=== PATIENT | male | born 1935 | race Caucasian/White ===

== ENCOUNTER → 2017-11-18 | Outpatient (CLI) | payer OTHER ==
[~2017-11-18] MED LIST: ALDACTONE25 MG PO; ASPIR 8181 MG PO; ATORVASTATIN CA40 MG PO; CLOPIDOGREL75 MG PO; COREG3.125 MG PO; METFORMIN HCL500 MG PO; NITROGLYCERIN0.4 MG SUBLING; PRINIVIL5 MG PO; ZOCOR20 MG PO
== END ==
LOC: M.RAD 09:45
DX: M41.86 Other forms of scoliosis, lumbar region (principal); M51.36 Other intervertebral disc degeneration, lumbar region; I70.0 Atherosclerosis of aorta

== ENCOUNTER → 2018-01-24 | Outpatient (CLI) | payer OTHER ==
--- NOTE | 2018-01-24 18:33 | 2DMMODE ---
[place] [address] 2 D/M-MODE ECHOCARDIOGRAM Name: HELENE PULIDO Room: [facility]#: [id number] Admission: 01/24/18 Attend Phys: Edson Ahn MD Discharge: Date of : 33 Date of Service: 01/24/18 1833 Report #: [id number] THIS REPORT FOR: //name// APPROVED REPORT Study performed: 01/24/2018 08:08:03 EXAM: Comprehensive 2D, Doppler, and color-flow Echocardiogram Patient Location: Out-Patient Status: routine BSA: 1.91 HR: 58 bpm BP: 120/75 mmHg Other Information Study Quality: Good Indications CAD Cardiomyopathy 2D Dimensions LVEF(%): 35.98 (>50%) IVSd: 11.71 (7-11mm) LVOT Diam: 20.80 (18-24mm) LVDd: 47.13 mm PWd: 10.54 (7-11mm) Ascending Ao: 31.69 (22-36mm) LVDs: 39.02 (25-40mm) Aortic Root: 31.32 mm Estrada's LVEF: 35.98 % Volumes Left Atrial Volume (Systole) LA ESV Index: 16.80 mL/m2 Aortic Valve AoV Peak Christ.: 1.39 m/s AO Peak Gr.: 7.77 mmHg LVOT Max P.68 mmHg AO Mean Gr.: 4.31 mmHg LVOT Mean P.83 mmHg LVOT Max V: 0.65 m/s AO V2 VTI: 25.56 cm LVOT Mean V: 0.41 m/s ROBIN (VTI): 1.80 cm2 LVOT V1 VTI: 13.53 cm AI [place]: 0.98 m/s2 AI PHT: 881.69 [place] [address] 2 D/M-MODE ECHOCARDIOGRAM Name: HELENE PLUIDO Room: [facility]#: [id number] Admission: 01/24/18 Attend Phys: Edson Ahn MD Discharge: Date of : 33 Date of Service: 01/24/18 1833 Report #: [id number] Mitral Valve E/A Ratio: 0.49 MV Decel. Time: 360.52 ms MV E Max Christ.: 0.37 m/s MV PHT: 104.55 ms MVA (PHT): 2.10 cm2 TDI E/Lateral E': 5.29 E/Medial E': 7.40 Medial E' Christ.: 0.05 m/s Lateral E' Christ.: 0.07 m/s Pulmonary Valve PV Peak Christ.: 0.93 m/s PV Peak Gr.: 3.47 mmHg Tricuspid Valve TR Peak Gr.: 15.44 mmHg RVSP: 20.44 mmHg Left Ventricle Left ventricle is borderline dilated. There is abnormal segmental wall motion with inferobasilar dyskinesis There is normal left ventricular wall thickness. Left ventricular systolic function is moderately decreased. LVEF is 35%. Grade I - abnormal relaxation pattern. Right Ventricle The right ventricle is normal size. The right ventricular systolic function is normal. Atria The left atrium size is normal. The right atrium size is normal. Aortic Valve Mild aortic valve sclerosis. Mild aortic regurgitation. There is no aortic valvular stenosis. Mitral Valve The mitral valve is normal in structure. Mild mitral regurgitation. No evidence of mitral valve stenosis. Tricuspid Valve The tricuspid valve is normal in structure. Trace tricuspid regurgitation[place] [address] 2 D/M-MODE ECHOCARDIOGRAM Name: HELENE PULIDO Room: [facility]#: [id number] Admission: 01/24/18 Attend Phys: Edson Ahn MD Discharge: Date of : 33 Date of Service: 01/24/18 1833 Report #: [id number] The pulmonary valve is normal in structure. Mild pulmonic regurgitation. Great Vessels The aortic root is normal in size. IVC is normal in size and collapses with >50% inspiration Pericardium There is no pericardial effusion. <Conclusion> Left ventricle is borderline dilated. There is normal left ventricular wall thickness. Left ventricular systolic function is moderately decreased. LVEF is 35%. Grade I - abnormal relaxation pattern. The right ventricle is normal size. The left atrium size is normal. Mild aortic valve sclerosis. Mild aortic regurgitation. There is no aortic valvular stenosis. The mitral valve is normal in structure. Mild mitral regurgitation. The tricuspid valve is normal in structure. IVC is normal in size and collapses with >50% inspiration There is no pericardial effusion. There is abnormal segmental wall motion with inferobasilar dyskinesis <ELECTRONICALLY SIGNED> By: Quinn Vergara MD, FACC 01/24/181832 32 32 Quinn Vergara MD, FACC /INF
== END ==
LOC: M.CRD 07:37
DX: I08.0 Rheumatic disorders of both mitral and aortic valves (principal); I25.10 Atherosclerotic heart disease of native coronary artery without angina pectoris; I25.5 Ischemic cardiomyopathy

== ENCOUNTER → 2018-08-15 | Outpatient (CLI) | payer OTHER ==
[2018-08-15 12:22] LABS: CALCIUM 9.5 mg/dL (8.5-10.1); CREATININE 1.8 mg/dL (0.6-1.3); POTASSIUM 4.7 mmol/L (3.5-5.1)
== END ==
LOC: M.LAB 00:19
PROVIDERS: Anesthesiology
DX: I12.9 Hypertensive chronic kidney disease with stage 1 through stage 4 chronic kidney disease, or unspecified chronic kidney disease (principal); E11.22 Type 2 diabetes mellitus with diabetic chronic kidney disease; E78.5 Hyperlipidemia, unspecified; N18.9 Chronic kidney disease, unspecified

== ENCOUNTER 2018-08-26 07:38 | Emergency (ER) | payer OTHER ==
[~2018-08-26] VITALS: Ht 177.8 cm; Wt 72.6 kg
[2018-08-26] MEDS ORDERED: PEPCID20 MG PO (07:53)
[2018-08-26] MEDS ORDERED: PRESERVISION A1 EAC2 PO (07:56)
[2018-08-26] MEDS ORDERED: CENTRUM ADULTS1 EACH PO (07:57)
[2018-08-26] MEDS ORDERED: SUPER B COMPLE1 EAC2 PO (07:57)
[2018-08-26 08:23] LABS: ABSOLUTE BASOPHILS 0.1 thou/uL (0.0-0.2); ABSOLUTE EOSINOPHILS 0.5 thou/uL (0.0-0.7); ABSOLUTE LYMPHOCYTES 1.3 thou/uL (0.8-5.3); ABSOLUTE MONOCYTES 0.8 thou/uL (0.0-1.2); ABSOLUTE NEUTROPHILS 5.3 thou/uL (1.6-8.1); EOSINOPHILS 5.9 %; HEMATOCRIT 40.8 % (42.0-52.0); MCH 34.3 pg (26.0-34.0); MCHC 34.3 g/dL (28.0-37.0); MONOCYTES 9.5 %; MPV 8.7 fl. (7.2-11.1); NUCLEATED RBCS 0 /100WBC; PLATELET COUNT* 184 thou/uL (150-400); POLYS 66.6 %; RBC 4.08 mil/uL (4.50-6.00); RDW-CV 13.2 % (10.5-14.5); WBC 7.9 thou/uL (4.0-11.0)
[2018-08-26 08:29] LABS: CALCIUM 9.4 mg/dL (8.5-10.1); CREATININE 1.9 mg/dL (0.6-1.3); POTASSIUM 4.8 mmol/L (3.5-5.1)
[2018-08-26 08:32] LABS: URINE BILIRUBIN NEGATIVE (Negative); URINE BLOOD NEGATIVE (Negative); URINE CLARITY CLEAR; URINE COLOR YELLOW; URINE GLUCOSE-RANDOM NEGATIVE (Negative); URINE KETONES NEGATIVE (Negative); URINE LEUKOCYTES-REFLEX NEGATIVE (Negative); URINE NITRITE-REFLEX NEGATIVE (Negative); URINE PROTEIN NEGATIVE (Negative); URINE SPECIFIC GRAVITY 1.015 (1.005-1.030); URINE UROBILINOGEN 0.2 E.U./dl (0.2-1.0)
[2018-08-26 08:33] LABS: ALBUMIN 3.6 g/dL (3.4-5.0); TOTAL BILIRUBIN 0.6 mg/dL (<0.1-1.0); TOTAL PROTEIN 7.5 g/dL (6.4-8.2)
[2018-08-26] MEDS ORDERED: NORCO 5-325 TA1 EACH PO (10:09)
[2018-08-26] MEDS ORDERED: COLACE100 MG PO (10:09)
[2018-08-26 10:23] VITALS: BP 145/43
== END 2018-08-26 10:24 | disposition home or self-care (01) ==
LOC: M.ERS 07:38
PROVIDERS: Personal Emergency Response Attendant
DX: S30.0XXA Contusion of lower back and pelvis, initial encounter (principal); K59.00 Constipation, unspecified; I10 Essential (primary) hypertension; E78.5 Hyperlipidemia, unspecified; Z90.49 Acquired absence of other specified parts of digestive tract; Z95.5 Presence of coronary angioplasty implant and graft; Z90.89 Acquired absence of other organs; W00.0XXA Fall on same level due to ice and snow, initial encounter; Y92.89 Other specified places as the place of occurrence of the external cause; Y93.89 Activity, other specified; Y99.8 Other external cause status

== ENCOUNTER 2018-12-12 18:01 | Emergency (ER) | payer OTHER ==
[~2018-12-12] VITALS: Ht 177.8 cm; Wt 73.9 kg
[~2018-12-12 18:01] MED LIST changes: -ALDACTONE25 MG PO; +CENTRUM ADULTS1 EACH PO; +COLACE100 MG PO; +NORCO 5-325 TA1 EACH PO; +PEPCID20 MG PO; +PRESERVISION A1 EAC2 PO; +SPIRONOLACTONE25 M1 PO; +SUPER B COMPLE1 EAC2 PO
[2018-12-12 18:40] LABS: ABSOLUTE BASOPHILS 0.1 thou/uL (0.0-0.2); ABSOLUTE EOSINOPHILS 0.6 thou/uL (0.0-0.7); ABSOLUTE LYMPHOCYTES 2.3 thou/uL (0.8-5.3); ABSOLUTE MONOCYTES 0.7 thou/uL (0.0-1.2); ABSOLUTE NEUTROPHILS 3.6 thou/uL (1.6-8.1); BASOPHILS 1.3 %; EOSINOPHILS 7.9 %; HEMATOCRIT 40.6 % (42.0-52.0); HEMOGLOBIN 13.8 gm/dL (14.0-18.0); LYMPHOCYTES 31.3 %; MCH 33.5 pg (26.0-34.0); MCHC 34.1 g/dL (28.0-37.0); MCV 98.5 fL (80.0-100.0); MONOCYTES 9.8 %; MPV 8.7 fl. (7.2-11.1); NUCLEATED RBCS 0 /100WBC; PLATELET COUNT* 215 thou/uL (150-400); POLYS 49.7 %; RBC 4.12 mil/uL (4.50-6.00); RDW-CV 13.2 % (10.5-14.5); WBC 7.2 thou/uL (4.0-11.0)
[2018-12-12 18:46] LABS: CALCIUM 9.2 mg/dL (8.5-10.1); CREATININE 1.8 mg/dL (0.6-1.3); POTASSIUM 4.1 mmol/L (3.5-5.1)
[2018-12-12 18:56] LABS: ALBUMIN 4.1 g/dL (3.4-5.0); TOTAL BILIRUBIN 0.3 mg/dL (<0.1-1.0); TOTAL PROTEIN 7.9 g/dL (6.4-8.2)
[2018-12-12 20:55] LABS: URINE BILIRUBIN NEGATIVE (Negative); URINE BLOOD NEGATIVE (Negative); URINE CLARITY CLEAR; URINE COLOR YELLOW; URINE GLUCOSE-RANDOM 1+ (Negative); URINE KETONES NEGATIVE (Negative); URINE LEUKOCYTES-REFLEX NEGATIVE (Negative); URINE NITRITE-REFLEX NEGATIVE (Negative); URINE PROTEIN TRACE (Negative); URINE UROBILINOGEN 0.2 E.U./dl (0.2-1.0)
[2018-12-12 21:33] VITALS: BP 155/62
[2018-12-13] MEDS ORDERED: FISH OIL 1,001000 M2 PO ×2 (05:56)
[2018-12-13] MEDS ORDERED: PLAVIX 75 MG TA75 M1 PO ×2 (05:56)
[2018-12-13] MEDS ORDERED: B COMPLEX1 EACH PO ×2 (05:57)
[2018-12-13] MEDS ORDERED: ATORVASTATIN CA40 MG PO ×2 (05:58)
== END 2018-12-12 21:33 | disposition home or self-care (01) ==
LOC: M.ERS 18:01
PROVIDERS: Nurse Practitioner Family
DX: R10.13 Epigastric pain (principal); R10.10 Upper abdominal pain, unspecified; E78.5 Hyperlipidemia, unspecified; I10 Essential (primary) hypertension; Z90.49 Acquired absence of other specified parts of digestive tract; Z95.5 Presence of coronary angioplasty implant and graft; Z98.890 Other specified postprocedural states

== ENCOUNTER 2018-12-13 03:51 | Observation (INO) | payer OTHER ==
[~2018-12-13] VITALS: Ht 177.8 cm; Wt 73.5 kg
[2018-12-13] VITALS (7 sets, daily range): BP systolic 119–153; BP diastolic 38–105
[2018-12-13 04:35] LABS: ABSOLUTE EOSINOPHILS 0.1 thou/uL (0.0-0.7); ABSOLUTE MONOCYTES 0.7 thou/uL (0.0-1.2); ABSOLUTE NEUTROPHILS 7.1 thou/uL (1.6-8.1); BASOPHILS 0.4 %; EOSINOPHILS 1.6 %; HEMATOCRIT 35.6 % (42.0-52.0); HEMOGLOBIN 12.2 gm/dL (14.0-18.0); MCH 33.8 pg (26.0-34.0); MCHC 34.1 g/dL (28.0-37.0); MONOCYTES 7.3 %; MPV 8.9 fl. (7.2-11.1); NUCLEATED RBCS 0 /100WBC; PLATELET COUNT* 168 thou/uL (150-400); POLYS 79.7 %; RDW-CV 13.4 % (10.5-14.5); WBC 8.9 thou/uL (4.0-11.0)
[2018-12-13 04:45] LABS: ANION GAP 9 mmol/L (7-16); BUN 24 mg/dL (7-18); CALCIUM 8.1 mg/dL (8.5-10.1); CHLORIDE 108 mmol/L (98-107); CO2 27 mmol/L (21-32); CREATININE 1.8 mg/dL (0.6-1.3); GLUCOSE 179 mg/dL (70-99); POTASSIUM 4.3 mmol/L (3.5-5.1); SODIUM 144 mmol/L (136-145)
[2018-12-13 04:48] LABS: PROTIME 10.6 Seconds (9.20-11.50)
[2018-12-13 05:00] LABS: ALBUMIN 3.3 g/dL (3.4-5.0); ALKALINE PHOSPHATASE 65 U/L (46-116); LIPASE 129 U/L (73-393); NT-PRO BRAIN NAT PEPTIDE 1657 pg/mL (<300); SGOT 42 U/L (15-37); SGPT 33 U/L (30-65); TOTAL BILIRUBIN 0.4 mg/dL (<0.1-1.0); TOTAL PROTEIN 6.4 g/dL (6.4-8.2); TROPONIN-I LEVEL <0.06 ng/mL (<0.06)
[2018-12-13] MEDS ORDERED: PLAVIX 75 MG TA75 M1 PO ×2 (05:56)
[2018-12-13] MEDS ORDERED: FISH OIL 1,001000 M2 PO ×2 (05:56)
[2018-12-13] MEDS ORDERED: B COMPLEX1 EACH PO ×2 (05:57)
[2018-12-13] MEDS ORDERED: ATORVASTATIN CA40 MG PO ×2 (05:58)
--- NOTE | 2018-12-13 14:04 | 2DMMODE ---
[place] [address] 2 D/M-MODE ECHOCARDIOGRAM Name: HELENE PULIDO Room: [address] IN [facility]#: [id number] Admission: 12/13/18 Attend Phys: Maximino Bran Discharge: Date of : 33 Date of Service: 12/13/18 1404 Report #: [id number] THIS REPORT FOR: //name// APPROVED REPORT Study performed: 12/13/2018 12:30:46 EXAM: Comprehensive 2D, Doppler, and color-flow Echocardiogram Patient Location: In-Patient Room #: 210 Status: routine BSA: 1.91 HR: 47 bpm BP: 123/54 mmHg Rhythm: NSR Other Information Study Quality: Good Indications Chest Pain 2D Dimensions IVSd: 11.20 (7-11mm) LVOT Diam: 19.12 (18-24mm) LVDd: 51.58 mm PWd: 8.64 (7-11mm) Ascending Ao: 35.97 (22-36mm) LVDs: 43.64 (25-40mm) Aortic Root: 34.98 mm Volumes Left Atrial Volume (Systole) LA ESV Index: 44.90 mL/m2 Aortic Valve AoV Peak Christ.: 1.83 m/s AO Peak Gr.: 13.44 mmHg LVOT Max P.79 mmHg AO Mean Gr.: 7.30 mmHg LVOT Mean P.76 mmHg LVOT Max V: 0.97 m/s AO V2 VTI: 45.16 cm LVOT Mean V: 0.60 m/s ROBIN (VTI): 1.58 cm2 LVOT V1 VTI: 24.80 cm AI [place]: 1.41 m/s2 AI PHT: 614.13 ms Mitral Valve E/A Ratio: 1.41 [place] [address] 2 D/M-MODE ECHOCARDIOGRAM Name: HELENE PULIDO Room: [address] IN .R.#: [id number] Admission: 12/13/18 Attend Phys: Maximino Bran Discharge: Date of : 33 Date of Service: 12/13/18 1404 Report #: [id number] MV Decel. Time: 348.09 ms MV E Max Christ.: 0.91 m/s MV PHT: 100.94 ms MVA (PHT): 2.18 cm2 TDI E/Lateral E': 11.38 E/Medial E': 10.11 Medial E' Christ.: 0.09 m/s Lateral E' Christ.: 0.08 m/s Pulmonary Valve PV Peak Christ.: 0.98 m/s PV Peak Gr.: 3.87 mmHg Tricuspid Valve RAP Estimate: 5.00 mmHg TR Peak Gr.: 27.49 mmHg RVSP: 32.00 mmHg PA Pressure: 32.00 mmHg Left Ventricle The left ventricle is normal size. Regional wall motion abnormalities are noted.Basal inferior wall is severely hypokinetic, other segments are normal There is normal left ventricular wall thickness. Left ventricular systolic function is mildly decreased. LVEF is 50%. The left ventricular diastolic function is normal. Right Ventricle Right ventricle is dilated. The right ventricular systolic function is normal. Atria Left atrium is moderately dilated. Right atrium is dilated. Aortic Valve Mild aortic valve sclerosis. Mild aortic regurgitation. There is no aortic valvular stenosis. Mitral Valve The mitral valve is normal in structure. Mild to moderate mitral regurgitation. No evidence of mitral valve stenosis. Tricuspid Valve The tricuspid valve is normal in structure. Mild tricuspid regurgitation. Mild pulmonary hypertension. Pulmonic Valve The pulmonary valve is normal in structure[place] [address] 2 D/M-MODE ECHOCARDIOGRAM Name: HELENE PULIDO COREY Room: [address]#: [id number] Admission: 12/13/18 Attend Phys: Maximino Bran Discharge: Date of : 33 Date of Service: 12/13/18 1404 Report #: [id number] regurgitation. Great Vessels The aortic root is normal in size. IVC is normal in size and collapses >50% with inspiration. Pericardium There is no pericardial effusion. <Conclusion> LVEF is 50%. Regional wall motion abnormalities are noted.Basal inferior wall is severely hypokinetic, other segments are normal Right ventricle is dilated. Left atrium is moderately dilated. Right atrium is dilated. Mild aortic valve sclerosis. Mild aortic regurgitation. Mild to moderate mitral regurgitation. Mild pulmonic regurgitation. <ELECTRONICALLY SIGNED> By: Vernon Wilkerson MD, FACC 12/13/18 1404 1404 1404 Vernon Wilkerson MD, FACC /INF
--- NOTE | 2018-12-13 14:29 | EKG ---
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1935 Requested By: Clary Fleming Order Number: [id number] MD: Vernon Wilkerson Measurements Intervals [place] Rate: 48 P: 65 [place]: 178 QRS: 40 QRSD: 121 T: 26 QT: 496 QTc: 444 Interpretive Statements Sinus bradycardia Nonspecific intraventricular conduction delay Compared to ECG 12/20/2016 07:50:49 Sinus rhythm no longer present Electronically Signed On 12-13-2018 14:29:32 CDT by Vernon Wilkerson [email or web address] <ELECTRONICALLY SIGNED> By: Vernon Wilkerson MD, [facility] 12/13/18 1429 0354 0354 Vernon Wilkerson MD, [facility] /EPI
[2018-12-14] VITALS: BP 111/63
[2018-12-14 04:00] VITALS: BP 95/47
[2018-12-14 06:45] LABS: ANION GAP 11 mmol/L (7-16); BUN 23 mg/dL (7-18); CALCIUM 8.5 mg/dL (8.5-10.1); CHLORIDE 107 mmol/L (98-107); CHOLESTEROL 125 mg/dL (<200); CO2 23 mmol/L (21-32); CREATININE 1.4 mg/dL (0.6-1.3); GLUCOSE 124 mg/dL (70-99); HDL CHOLESTEROL 38 mg/dL (>40); LDL CHOLESTEROL 66 mg/dL (<100); POTASSIUM 4.8 mmol/L (3.5-5.1); SODIUM 141 mmol/L (136-145); TC:HDL 3.3 Ratio (Not establshd); TRIGLYCERIDE 105 mg/dL (<150); TROPONIN-I LEVEL <0.06 ng/mL (<0.06); VLDL 21 mg/dL (<40)
[2018-12-14 06:46] LABS: SERUM ASSESSMENT Clear
[2018-12-14 08:00] VITALS: BP 140/55
[2018-12-14 11:59] VITALS: BP 133/55
[2018-12-14] MEDS ORDERED: SENNA PLUS TAB1 EACH PO ×2 (12:20)
[2018-12-14] MEDS ORDERED: NEXIUM40 MG PO ×2 (12:20)
[2018-12-14 12:56] VITALS: BP 133/55
== END 2018-12-14 13:30 | disposition home or self-care (01) ==
LOC: M.ERS 03:51 → M.2W 04:52 → M.TBA-ER 04:52 → M.2W 04:52
PROVIDERS: Family Medicine; Personal Emergency Response Attendant; ADMIT Family Medicine
DX: K21.9 Gastro-esophageal reflux disease without esophagitis (principal); R07.89 Other chest pain; I25.10 Atherosclerotic heart disease of native coronary artery without angina pectoris; I10 Essential (primary) hypertension; I13.0 Hypertensive heart and chronic kidney disease with heart failure and stage 1 through stage 4 chronic kidney disease, or unspecified chronic kidney disease; I50.9 Heart failure, unspecified; N18.3 Chronic kidney disease, stage 3 (moderate); E11.22 Type 2 diabetes mellitus with diabetic chronic kidney disease; E78.5 Hyperlipidemia, unspecified; R00.1 Bradycardia, unspecified; K59.00 Constipation, unspecified; Z95.1 Presence of aortocoronary bypass graft; I25.5 Ischemic cardiomyopathy; Z87.891 Personal history of nicotine dependence; Z79.899 Other long term (current) drug therapy

== ENCOUNTER → 2019-03-01 | Outpatient (CLI) | payer OTHER ==
[~2019-03-01] MED LIST changes: +B COMPLEX1 EACH PO; +FISH OIL 1,001000 M2 PO; +NEXIUM40 MG PO; +PLAVIX 75 MG TA75 M1 PO; +SENNA PLUS TAB1 EACH PO
== END ==
LOC: M.RAD 08:49
DX: M48.50XA Collapsed vertebra, not elsewhere classified, site unspecified, initial encounter for fracture (principal)

== ENCOUNTER → 2019-12-08 | Outpatient (CLI) | payer OTHER | LOC: M.LAB 11-08 14:57 | DX: I67.82 Cerebral ischemia (principal); R41.3 Other amnesia; I25.2 Old myocardial infarction; N18.3 Chronic kidney disease, stage 3 (moderate); Z85.528 Personal history of other malignant neoplasm of kidney ==

== ENCOUNTER 2020-07-15 12:24 | Inpatient (IN) | payer OTHER ==
[~2020-07-15] VITALS: Ht 170.2 cm; Wt 61.5 kg
[2020-07-15 12:56] VITALS: BP 156/84
[2020-07-15 13:02] LABS: ABSOLUTE EOSINOPHILS 0.1 thou/uL (0.0-0.7); ABSOLUTE LYMPHOCYTES 1.7 thou/uL (0.8-5.3); ABSOLUTE MONOCYTES 0.6 thou/uL (0.0-1.2); ABSOLUTE NEUTROPHILS 4.4 thou/uL (1.6-8.1); BASOPHILS 0.5 %; EOSINOPHILS 1.7 %; HEMATOCRIT 42.9 % (42.0-52.0); HEMOGLOBIN 14.5 gm/dL (14.0-18.0); LYMPHOCYTES 24.2 %; MCH 34.5 pg (26.0-34.0); MCHC 33.9 g/dL (28.0-37.0); MCV 101.8 fL (80.0-100.0); MONOCYTES 9.3 %; MPV 9.2 fl. (7.2-11.1); NUCLEATED RBCS 0 /100WBC; PLATELET COUNT* 237 thou/uL (150-400); POLYS 64.3 %; RBC 4.21 mil/uL (4.50-6.00); RDW-CV 12.5 % (10.5-14.5); WBC 6.8 thou/uL (4.0-11.0)
[2020-07-15 13:08] LABS: URINE BILIRUBIN NEGATIVE (Negative); URINE BLOOD TRACE (Negative); URINE CLARITY CLEAR; URINE COLOR YELLOW; URINE GLUCOSE-RANDOM NEGATIVE (Negative); URINE KETONES TRACE (Negative); URINE LEUKOCYTES-REFLEX NEGATIVE (Negative); URINE NITRITE-REFLEX NEGATIVE (Negative); URINE PROTEIN 1+ (Negative); URINE SPECIFIC GRAVITY >= 1.030 (1.005-1.030); URINE UROBILINOGEN 0.2 E.U./dl (0.2-1.0)
[2020-07-15 13:12] LABS: CALCIUM 9.1 mg/dL (8.5-10.1); CREATININE 2.3 mg/dL (0.6-1.3); POTASSIUM 3.6 mmol/L (3.5-5.1)
[2020-07-15 13:15] LABS: APTT 27.5 Seconds (25.0-31.3); INR 1.2; PROTIME 12.4 Seconds (9.20-11.50)
[2020-07-15 13:21] LABS: INFLUENZA A ANTIGEN Negative (Negative); INFLUENZA B ANTIGEN Negative (Negative)
[2020-07-15 13:23] LABS: ALBUMIN 3.5 g/dL (3.4-5.0); TOTAL BILIRUBIN 0.9 mg/dL (<0.1-1.0); TOTAL PROTEIN 8.4 g/dL (6.4-8.2)
--- NOTE | 2020-07-15 15:17 | EKG ---
[place] [address] ELECTROCARDIOGRAM REPORT Name: HELENE PULIDO Room: [address] ADM IN ..#: [id number] Admission: 07/15/20 Attend Phys: Ghanshyam Ricks Discharge: Date of : 33 Date of Service: 07/15/20 1251 Report #: [id number] THIS REPORT FOR: //name// [facility] ED Test Date: 2020-07-15 Test Time: 12:51:07 Pat Name: HELENE PULIDO Department: Room: [facility] Gender: M Manager [place]: [facility] : 1935 Requested By: Rodriguez Coelho Order Number: [id number] MD: Quinn Vergara Measurements Intervals [place] Rate: 82 P: 68 [place]: 160 QRS: 62 QRSD: 118 T: -2 QT: 393 QTc: 459 Interpretive Statements Sinus rhythm Multiple ventricular premature complexes Probable left atrial enlargement Left ventricular hypertrophy Borderline T abnormalities, inferior leads Baseline wander in lead(s) V4,V5 Compared to ECG 12/13/2018 03:54:59 Ventricular premature complex(es) now present Left ventricular hypertrophy now present T-wave abnormality now present Sinus bradycardia no longer present Intraventricular conduction delay persists Electronically Signed On 07-15-2020 15:17:29 DIRECTOR OF PUBLICATIONS by Quinn Vergara [email or web address] <ELECTRONICALLY SIGNED> By: Quinn Vergara MD, [facility] 07/15/20 1517 1251 1251 Quinn Vergara MD, [facility] /EPI
[2020-07-15 15:18] VITALS: BP 128/71
[2020-07-15 15:36] VITALS: BP 134/68
[2020-07-15 20:02] VITALS: BP 126/58
[2020-07-16] VITALS: BP 102/46
[2020-07-16 04:00] VITALS: BP 125/61
[2020-07-16 08:00] VITALS: BP 117/52
[2020-07-16] MEDS ORDERED: SPIRONOLACTONE25 MG PO (08:31)
[2020-07-16 20:45] VITALS: BP 113/48
[2020-07-17 07:50] VITALS: BP 108/64
[2020-07-17 20:12] VITALS: BP 121/51
[2020-07-18 08:00] VITALS: BP 106/70
[2020-07-18] MEDS ORDERED: PREDNISONE 10 M10 MG PO (08:29)
[2020-07-18] MEDS ORDERED: CEFDINIR300 MG PO (08:29)
[2020-07-18 13:04] VITALS: BP 106/70
[2020-07-18 13:44] VITALS: BP 106/70
== END 2020-07-18 14:15 | disposition home health service (06) | DRG 177 ==
LOC: M.ERS 12:24 → M.ORTHSURG 13:56 → M.TBA-ER 13:56 → M.ORTHSURG 15:10
PROVIDERS: Family Medicine; ADMIT Internal Medicine; ATTEND Internal Medicine
PROC: XW033E5 Introduction of Remdesivir Anti-infective into Peripheral Vein, Percutaneous Approach, New Technology Group 5 (ICD-10-PCS; principal; 2020-07-15)
DX: U07.1 COVID-19 (principal); J12.89 Other viral pneumonia; J96.20 Acute and chronic respiratory failure, unspecified whether with hypoxia or hypercapnia; J15.6 Pneumonia due to other Gram-negative bacteria; N17.9 Acute kidney failure, unspecified; I24.9 Acute ischemic heart disease, unspecified; E78.5 Hyperlipidemia, unspecified; I12.9 Hypertensive chronic kidney disease with stage 1 through stage 4 chronic kidney disease, or unspecified chronic kidney disease; I25.10 Atherosclerotic heart disease of native coronary artery without angina pectoris; N18.9 Chronic kidney disease, unspecified; Z87.891 Personal history of nicotine dependence; Z95.5 Presence of coronary angioplasty implant and graft; I25.2 Old myocardial infarction; Z90.49 Acquired absence of other specified parts of digestive tract; Z79.899 Other long term (current) drug therapy

== ENCOUNTER 2021-04-28 18:54 | Inpatient (IN) | payer OTHER ==
[~2021-04-28] VITALS: Ht 177.8 cm; Wt 66.9 kg
[~2021-04-28 18:54] MED LIST changes: +CEFDINIR300 MG PO; +PREDNISONE 10 M10 MG PO; +SPIRONOLACTONE25 MG PO
[2021-04-28 18:58] VITALS: BP 157/83
[2021-04-28 19:16] LABS: ABSOLUTE BASOPHILS 0.1 thou/uL (0.0-0.2); ABSOLUTE EOSINOPHILS 0.2 thou/uL (0.0-0.7); ABSOLUTE LYMPHOCYTES 1.4 thou/uL (0.8-5.3); ABSOLUTE MONOCYTES 0.6 thou/uL (0.0-1.2); ABSOLUTE NEUTROPHILS 6.8 thou/uL (1.6-8.1); BASOPHILS 0.7 %; EOSINOPHILS 2.6 %; HEMATOCRIT 37.5 % (42.0-52.0); HEMOGLOBIN 12.6 gm/dL (14.0-18.0); LYMPHOCYTES 15.4 %; MCH 34.1 pg (26.0-34.0); MCHC 33.5 g/dL (28.0-37.0); MCV 101.6 fL (80.0-100.0); MONOCYTES 6.7 %; MPV 8.6 fl. (7.2-11.1); NUCLEATED RBCS 0 /100WBC; PLATELET COUNT* 200 thou/uL (150-400); POLYS 74.6 %; RBC 3.69 mil/uL (4.50-6.00); WBC 9.1 thou/uL (4.0-11.0)
[2021-04-28 19:49] LABS: CALCIUM 8.8 mg/dL (8.5-10.1); CREATININE 1.7 mg/dL (0.6-1.3); POTASSIUM 4.2 mmol/L (3.5-5.1)
[2021-04-28 20:13] LABS: ALBUMIN 3.9 g/dL (3.4-5.0); CK-MB MASS 3.1 ng/mL (<0.5-3.6); TOTAL BILIRUBIN 0.4 mg/dL (<0.1-1.0); TOTAL PROTEIN 7.6 g/dL (6.4-8.2)
[2021-04-28 22:45] VITALS: BP 123/64
[2021-04-28 23:39] VITALS: BP 122/57
[2021-04-29 04:00] VITALS: BP 121/55
[2021-04-29 08:00] VITALS: BP 95/54
[2021-04-29 09:00] VITALS: BP 102/56
[2021-04-29 09:29] VITALS: BP 104/61
--- NOTE | 2021-04-29 11:35 | EKG ---
[place] [address] ELECTROCARDIOGRAM REPORT Name: HELENE PULIDO Room: [address] M.R.#: [id number] Admission: 04/28/21 Attend Phys: Ghanshyam Ricks Discharge: Date of : 33 Date of Service: 04/28/21 1854 Report #: [id number] THIS REPORT FOR: //name// 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 <ELECTRONICALLY SIGNED> By: Edson Ahn MD, FACC 04/29/21 1134 53 53 Edson Ahn MD, FACC /EPI
[2021-04-29] MEDS ORDERED: PRECOSE 25 MG25 M1 PO (11:58)
[2021-04-29] MEDS ORDERED: ARICEPT10 M1 PO (11:58)
[2021-04-29] MEDS ORDERED: FOSAMAX 70 MG T70 MG PO (12:00)
--- NOTE | 2021-04-29 14:25 | 2DMMODE ---
[place] [address] 2 D/M-MODE ECHOCARDIOGRAM Name: TESSHELENE COREY Room: [address] IN [facility]#: [id number] Admission: 04/28/21 Attend Phys: Ghanshyam Ricks Discharge: Date of : 33 Date of Service: 04/29/21 1424 Report #: [id number] THIS REPORT FOR: cc: Cindy Knox Linda J. DO Liston, Michael J. MD [facility] ~ APPROVED REPORT Study performed: 04/29/2021 11:16:02 EXAM: Comprehensive 2D, Doppler, and color-flow Echocardiogram Patient Location: In-Patient Room #: [facility] Status: routine BSA: 1.83 HR: 103 bpm BP: 95/54 mmHg Rhythm: NSR Other Information Study Quality: Good Indications Acute ME Atrial Fibrillation 2D Dimensions IVSd: 9.48 (7-11mm) LVOT Diam: 21.03 (18-24mm) LVDd: 51.73 mm PWd: 10.22 (7-11mm) Ascending Ao: 34.75 (22-36mm) LVDs: 48.99 (25-40mm) Aortic Root: 34.07 mm Volumes Left Atrial Volume (Systole) LA ESV Index: 33.80 mL/m2 Aortic Valve AoV Peak Christ.: 1.52 m/s AO Peak Gr.: 9.26 mmHg LVOT Max P.72 mmHg AO Mean Gr.: 5.55 mmHg LVOT Mean P.19 mmHg LVOT Max V: 0.83 m/s AO V2 VTI: 23.99 cm LVOT Mean V: 0.49 m/s ROBIN (VTI): 2.10 cm2 LVOT V1 VTI: 14.51 [place] [address] 2 D/M-MODE ECHOCARDIOGRAM Name: HELENE PULIDO Room: [address] IN ..#: [id number] Admission: 04/28/21 Attend Phys: Ghanshyam Ricks Discharge: Date of : 33 Date of Service: 04/29/21 1424 Report #: [id number] [place]: 2.29 m/s2 AI PHT: 357.97 ms Pulmonary Valve PV Peak Christ.: 0.86 m/s PV Peak Gr.: 2.95 mmHg Left Ventricle The left ventricle is normal size. There is akinesis of the basal inferior wall. Lateral wall is hypokinetic. There is normal left ventricular wall thickness. Left ventricular systolic function is moderately to severely decreased. LVEF is 30-35%. This study is not technically sufficient to allow evaluation of the LV diastolic function due to atrial fibrillation. Right Ventricle Right ventricle is mildly dilated. The right ventricular systolic function is normal. Atria The left atrium size is normal. Right atrium is mildly dilated. Aortic Valve Mild aortic valve sclerosis. Moderate aortic regurgitation. There is no aortic valvular stenosis. Mitral Valve The mitral valve is normal in structure. Mild mitral regurgitation. No evidence of mitral valve stenosis. Tricuspid Valve The tricuspid valve is normal in structure. Trace tricuspid regurgitation. Pulmonic Valve The pulmonary valve is normal in structure. There is no pulmonic valvular regurgitation. Great Vessels The aortic root is normal in size. IVC is not well visualized. Pericardium There is no pericardial effusion. <Conclusion> [place] [address] 2 D/M-MODE ECHOCARDIOGRAM Name: HELENE PULIDO COREY Room: [address] IN .R.#: [id number] Admission: 04/28/21 Attend Phys: Ghanshyam Ricks Discharge: Date of : 33 Date of Service: 04/29/21 1424 Report #: [id number] The left ventricle is normal size. There is normal left ventricular wall thickness. Left ventricular systolic function is moderately to severely decreased. LVEF is 30-35%. This study is not technically sufficient to allow evaluation of the LV diastolic function due to atrial fibrillation. There is akinesis of the basal inferior wall. Lateral wall is hypokinetic. Right ventricle is mildly dilated. Right atrium is mildly dilated. Moderate aortic regurgitation. Mild aortic valve sclerosis. Mild mitral regurgitation. Trace tricuspid regurgitation. <ELECTRONICALLY SIGNED> By: Yazan Morin MD, FACC 04/29/21 142 23 142 Yazan Morin MD, FACC /INF
[2021-04-29 16:00] VITALS: BP 95/51
[2021-04-29 21:06] VITALS: BP 119/50
[2021-04-30] MEDS ORDERED: PACERONE 200 M200 M1 PO (08:22)
[2021-04-30] MEDS ORDERED: BAYER CHEWABLE81 MG PO (08:22)
[2021-04-30] MEDS ORDERED: NITROGLYCERIN0.4 MG SUBLING ×2 (08:22→13:06)
[2021-04-30] MEDS ORDERED: IMDUR 30 MG TAB30 M1 PO (08:22)
[2021-04-30 08:35] LABS: CALCIUM 7.9 mg/dL (8.5-10.1); CREATININE 1.6 mg/dL (0.6-1.3); POTASSIUM 4.2 mmol/L (3.5-5.1)
[2021-04-30 09:00] VITALS: BP 106/46
[2021-04-30 10:13] VITALS: BP 106/46
[2021-04-30 11:03] VITALS: BP 106/46
--- NOTE | 2021-04-30 11:19 | EKG ---
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1935 Requested By: Leila Sepulveda Order Number: [id number] Reading MD: Edson Ahn Measurements Intervals [place] Rate: 85 P: [place]: QRS: 66 QRSD: 106 T: 250 QT: 380 QTc: 452 Interpretive Statements Atrial flutter with predominant 3:1 AV block ventricular premature complexes Probable LVH with secondary repol abnrm Compared to ECG 04/28/2021 18:54:13 rate has slowed Electronically Signed On 04-30-2021 11:19:42 CDT by Edson Ahn [email or web address] <ELECTRONICALLY SIGNED> By: Edson Ahn MD, FACC 04/30/21 1119 4 0805 Edson Ahn MD, FACC /EPI
== END 2021-04-30 11:18 | disposition home or self-care (01) | DRG 280 ==
LOC: M.ERS 18:54 → M.TBA-ER 20:26 → M.2W 20:26 → M.TBA-ER 20:26 → M.2W 22:30
PROVIDERS: Family Medicine; Registered Nurse; ADMIT Internal Medicine; ATTEND Internal Medicine
DX: I21.4 Non-ST elevation (NSTEMI) myocardial infarction (principal); I50.21 Acute systolic (congestive) heart failure; I48.92 Unspecified atrial flutter; I13.0 Hypertensive heart and chronic kidney disease with heart failure and stage 1 through stage 4 chronic kidney disease, or unspecified chronic kidney disease; I25.110 Atherosclerotic heart disease of native coronary artery with unstable angina pectoris; I48.0 Paroxysmal atrial fibrillation; I25.5 Ischemic cardiomyopathy; E78.5 Hyperlipidemia, unspecified; F03.90 Unspecified dementia, unspecified severity, without behavioral disturbance, psychotic disturbance, mood disturbance, and anxiety; N18.9 Chronic kidney disease, unspecified; E11.22 Type 2 diabetes mellitus with diabetic chronic kidney disease; Z20.822 Contact with and (suspected) exposure to COVID-19; Z85.53 Personal history of malignant neoplasm of renal pelvis; I25.2 Old myocardial infarction; Z95.5 Presence of coronary angioplasty implant and graft; Z95.1 Presence of aortocoronary bypass graft; Z90.49 Acquired absence of other specified parts of digestive tract; Z79.899 Other long term (current) drug therapy; Z23 Encounter for immunization